=== PATIENT | female | born 1955 | race Two or more races ===

== ENCOUNTER 2024-08-28 17:53 | Emergency (ER) | payer OTHER ==
[~2024-08-28] VITALS: Ht 165.1 cm; Wt 76.7 kg
[~2024-08-28 17:53] MED LIST: CHILDREN'S ASPI81 MG PO; COZAAR25 MG PO; DUI500 PO; METFORMIN HCL500 M2 PO; PLAVIX75 MG PO
[2024-08-28] MEDS ORDERED: LIPITOR20 MG PO (18:07)
[2024-08-28 19:20] LABS: HEMATOCRIT 37.7 % (36.0-45.00); HEMOGLOBIN 12.8 g/dL (12.0-15.00); MEAN CELL VOLUME 90.7 fL (80.00-100.00); MEAN CORPUSCULAR HEMOGLOBIN 30.8 pg (27.00-32.0); MEAN CORPUSCULAR HGB CONC 33.9 g/dl (32.0-36.0); PLATELET COUNT 265 K/uL (150-450); RED BLOOD COUNT 4.15 M/uL (4.00-6.00); RED CELL DISTRIBUTION WIDTH 13.6 % (11.5-14.5)
[2024-08-28 19:50] LABS: CALCIUM 9.9 mg/dL (8.5-10.1); CREATININE SERUM 0.82 mg/dL (0.55-1.02); GFR 68.92; POTASSIUM 4.11 mEq/L (3.5-5.1)
[2024-08-28] MEDS ORDERED: KETOROLAC TROMETHAMINE 30 MG VIAL IV ONE (21:30)
[2024-08-28 21:51] LABS: PH,URINE 5.5 (5.0-8.0); URINE APPEARANCE Clear; URINE BILIRRUBIN Negative (NEGATIVE); URINE BLOOD Negative; URINE COLOR Yellow; URINE GLUCOSE Negative (NEGATIVE); URINE KETONE Trace (NEGATIVE); URINE LEUKOCYTE Small; URINE NITRATE Negative; URINE PROTEIN Negative (NEGATIVE)
[2024-08-28 21:55] LABS: URINE EPITHELIAL CELLS 11.9 uL (0.0-38.8); URINE RBC 5.3 uL (0.0-20.8); URINE WBC 21.9 uL (0.0-23.2)
== END 2024-08-28 21:49 | disposition home or self-care (01) ==
LOC: ER 17:55
PROVIDERS: Emergency Medicine
DX: R07.9 Chest pain, unspecified (principal); M54.9 Dorsalgia, unspecified; R53.1 Weakness; I10 Essential (primary) hypertension; E11.9 Type 2 diabetes mellitus without complications; Z79.84 Long term (current) use of oral hypoglycemic drugs
CPT/HCPCS: 36415; 71046; 96365; 99283; J1885